=== PATIENT | male | born 1995 ===

== ENCOUNTER 2017-10-29 10:22 | Emergency (ER) | payer OTHER ==
[~2017-10-29] VITALS: Ht 170.2 cm; Wt 68.5 kg
[2017-10-29 10:30] VITALS: BP 120/85; TEMP 36.7; Ht 170.2 cm; Wt 68.5 kg
[2017-10-29] MEDS ORDERED: ERYOPO OPR (10:41)
--- NOTE | 2017-10-29 10:43 | EMERGENCY ROOM VISIT NOTE ---
History First contact with patient: 10:32 Chief Complaint: EYE ASSESSMENT Stated Complaint: SWOLLEN RIGHT EYELID History of Present Illness The patient is a 21 year old male who presents to the Emergency Room with complaints of swelling of his right upper eyelid. The patient reports he noticed some irritation in the eyelid yesterday, then today when he woke up he noticed the right upper eyelid was swollen. It is swollen on the outside aspect of the eyelid. He states his vision is not affected. He does not wear contacts. He denies any injury to the eye. He denies any drainage from the eye. He denies any history of similar symptoms. The eye is not painful or itchy at this time. Review of Systems A complete 10 point review of systems was reviewed with the patient with pertinent positives and negatives as per history of present illness. All else were negative. Past Medical/Surgical History Medical Problems: (1) No significant active problems Social History Alcohol Use: none Housing Status: lives with roommate Occupation Status: [employer] Current/Historical Medications Scheduled Erythromycin Opth (Erythromycin Opth), 1 APPLN OPR QID Physical Exam Vital Signs Date Time Temp Pulse Resp B/P (MAP) Pulse Ox O2 Delivery O2 Flow Rate FiO2 10/29/17 11:08 77 18 99 10/29/17 10:30 36.7 82 18 120/85 99 Room Air Physical Exam VITALS: Vitals are noted on the nurse's note and reviewed by myself. Vital signs stable. GENERAL: This is a 21-year-old male, in no acute distress, nondiaphoretic, well- developed well-nourished. SKIN: The skin was without rashes. EYES: Pupils equal round and reactive to light and accommodation. Conjunctivae without injection. EOMs intact. There is some swelling to the outer aspect of the right upper eyelid which is mildly tender to palpation. NEURO: Patient was alert and oriented to person place and time. Medical Decision & Procedures Medications Administered Medications (Trade) Dose Ordered Sig/Gregory Route Start Time Stop Time Status Last Admin Dose Admin Erythromycin (Erythromycin Oph Oint) 1 appln NOW ONCE OP 10/29/17 10:45 10/29/17 10:46 DC 10/29/17 11:08 1 APPLN Medical Decision Differential diagnosis includes stye, preseptal cellulitis, conjunctivitis, among others. The patient was evaluated as above. Exam is consistent with hordeolum/stye. Patient was given erythromycin ointment and instructed to perform warm compresses at home. 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 He verbalized his understanding of my assessment and treatment plan and was discharged home in good condition. Medication Reconcilliation Current Medication List: was personally reviewed by me Blood Pressure Screening Patient's blood pressure: Normal blood pressure Impression Primary Impression: Hordeolum externum (stye) Departure Information Dispostion Home / Self-Care Condition GOOD Prescriptions Erythromycin Opth (ERYTHROMYCIN OPTH) 12 Appln/3.5 Gm Oint 1 APPLN OPR QID for 7 Days, #1 TUBE Prov: Pura Che ., KILEY 10/29/17 Referrals No Doctor, Assigned (PCP) Patient Instructions My [facility] Additional Instructions You have been prescribed Erythromycin Opthalmic ointment. This is an antibiotic ointment which will help prevent an infection from developing in your affected eye. You should apply a 1 cm ribbon of the ointment to the upper part of the affected eye for times per day for the next 7 to 10 days, or until the swelling has completely resolved. Apply warm compresses over the eye 3-4 times daily to help with swelling. Follow-up with [facility] this week for a recheck. Return to the emergency department with worsening swelling, pain in the eye, any difficulty with vision, or other new/concerning symptoms. Problem Qualifiers Primary Impression: Hordeolum externum (stye) Laterality: right Eyelid: upper Qualified Codes: H00.011 - Hordeolum externum right upper eyelid
[2017-10-29] MEDS ORDERED: ERYTHROMYCIN OP OINT 5 MG/GM 3.5 GM TUBE OP ONE (10:45)
[2017-10-29 11:08] VITALS: PULSE 77; O2SAT 99
== END 2017-10-29 11:07 | disposition home or self-care (01) ==
LOC: C.EDB 10:24 → C.EDD 11:07
DX: H00.011 Hordeolum externum right upper eyelid (principal)